=== PATIENT | female | born 1940 | race Caucasian/White ===

== ENCOUNTER 2021-10-05 17:05 | Outpatient (CLI) | payer MEDICARE, OTHER ==
[2021-10-05 18:56] LABS: Mean Corpuscular HGB CONC 32.9 g/dL (32.0-36.0); Mean Corpuscular Hemoglobin 29.8 pg (27.0-33.0); Mean Corpuscular Volume 90.6 fl (81.6-98.3); Platelet Count 183 10x3/uL (150-450); RBC Distribution Width 12.9 % (11.5-14.5); Red Blood Cell (RBC) Count 4.03 10x6/uL (3.90-5.03); White Blood Cell (WBC) Count 5.6 10x3/uL (3.5-10.5)
[2021-10-05 19:21] LABS: Anion Gap 11 mmol/L (10-20); BUN (Urea Nitrogen) 26 mg/dL (9.8-20.1); Calc. Creatinine Clearance 0 mL/min (70-130); Calcium 9.1 mg/dL (7.8-10.44); Carbon Dioxide 27 mmol/L (23-31); Chloride 100 mmol/L (98-107); Glucose 88 mg/dL (83-110); PTT 26.3 sec (22.0-33.0); Potassium 4.3 mmol/L (3.5-5.1); Prothrombin Time 10.6 sec (9.5-12.1); Sodium 134 mmol/L (136-145)
[2021-10-06 19:45] LABS: SARS-CoV-2 PCR by NAA Not Detected (NotDetected)
== END 2021-10-05 17:06 | disposition home or self-care (01) ==
LOC: LABBT 17:05
PROVIDERS: ATTEND Surgery
DX: Z01.818 Encounter for other preprocedural examination (principal); M50.120 Mid-cervical disc disorder, unspecified level; M48.02 Spinal stenosis, cervical region; Z20.822 Contact with and (suspected) exposure to COVID-19
CPT/HCPCS: 80048; 85027; 85610; 85730; 86850; 86900; 86901; 93005; U0003; U0005; 93010

== ENCOUNTER 2021-10-08 05:21 | Observation (INO) | payer MEDICARE, OTHER ==
[2021-10-06 14:24] VITALS: BMI 32.4
[2021-10-08] MEDS ORDERED: ceFAZolin 2 GM/DEX 5% 100 ML BAG ONE (06:15)
[2021-10-08] MEDS ORDERED: HYDROmorphone 2 MG/ML VIAL ONE (06:18)
[2021-10-08] MEDS ORDERED: Fentanyl 100 MCG/2 ML VIAL ONE (06:18)
[2021-10-08] MEDS ORDERED: Sodium Chloride 0.9% 10 ML ONE (06:19)
[2021-10-08] MEDS ORDERED: Thrombin 5000 UNITS/5 ML VIAL ONE (06:50)
[2021-10-08] MEDS ORDERED: Ketamine 50 MG/ML (10ML VIAL) ONE (07:10)
[2021-10-08] MEDS ORDERED: Ondansetron PF 4 MG/2 ML Vial ONE (07:32)
[2021-10-08] MEDS ORDERED: PROPOFOL 200 MG/20 ML VIAL ONE (07:32)
[2021-10-08] MEDS ORDERED: Phenylephrine 10 MG/ML VIAL ONE (07:32)
[2021-10-08] MEDS ORDERED: ePHEDrine 50 MG/ML VIAL ONE (07:32)
[2021-10-08] MEDS ORDERED: Lidocaine 1% PF 5 ML VIAL ONE (07:32)
[2021-10-08] MEDS ORDERED: Dexamethasone 20 MG/5 ML VIAL ONE (07:32)
[2021-10-08] MEDS ORDERED: Metoclopramide HCl 10 MG/2 ML VIAL ONE (07:32)
[2021-10-08] MEDS ORDERED: Glycopyrrolate 0.2 MG/ML 5 ML SYRINGE ONE (07:32)
[2021-10-08] MEDS ORDERED: Rocuronium Bromide 10 MG/ML (10ML VIAL) ONE (07:32)
[2021-10-08] MEDS ORDERED: Morphine 2 MG/ML VIAL SLOW IVP PRN (07:40)
[2021-10-08] MEDS ORDERED: HYDROcodone/Acetaminophen 7.5/325 mg Tablet PO PRN (07:40)
[2021-10-08] MEDS ORDERED: traMADol HCl 50 MG TAB PO PRN ×2 (07:40)
[2021-10-08] MEDS ORDERED: Acetaminophen 325 MG TAB PO PRN (07:40)
[2021-10-08] MEDS ORDERED: tiZANidine HCl 4 MG TAB PO PRN (07:43)
[2021-10-08] MEDS ORDERED: Morphine 4 MG/ML VIAL SLOW IVP PRN (08:02)
[2021-10-08] MEDS ORDERED: Non-Formulary Item 1 EACH (Omeprazole [Omeprazole] 40 MG Capsule.Dr) PO SCH (09:00)
[2021-10-08] MEDS ORDERED: Atorvastatin Calcium 20 MG TAB PO SCH (09:00)
[2021-10-08] MEDS ORDERED: Flecainide 50 MG TAB PO SCH (09:00)
[2021-10-08] MEDS ORDERED: Non-Formulary Item 1 EACH (Levothyroxine Sodium [Levothyroxine] 50 MCG Capsule) PO SCH (09:00)
[2021-10-08] MEDS ORDERED: Non-Formulary Item 1 EACH (Gabapentin [Gabapentin] 600 MG Tablet) PO SCH (09:00)
[2021-10-08] MEDS ORDERED: Amlodipine 5 MG TAB PO SCH (09:00)
[2021-10-08] MEDS ORDERED: Meperidine HCl/PF 25 MG/ML VIAL SLOW IVP PRN (09:04)
[2021-10-08] MEDS ORDERED: HYDROmorphone 2 MG/ML VIAL SLOW IVP PRN (09:04)
[2021-10-08] MEDS ORDERED: Ondansetron HCl/PF 4 MG/2 ML Vial IVP PRN (09:04)
[2021-10-08] MEDS ORDERED: Promethazine HCl 25 MG/ML VIAL IVPB PRN (09:04)
[2021-10-08] MEDS ORDERED: Promethazine HCl 25 MG/ML VIAL IM PRN (09:04)
[2021-10-08] MEDS ORDERED: SUGAMMADEX SODIUM 200 MG/2 ML VIAL ONE (09:17)
[2021-10-08] MEDS: Amlodipine 5 MG TAB PO SCH (13:43)
[2021-10-08] MEDS: Flecainide 50 MG TAB PO SCH ×2 (13:47→20:20)
[2021-10-08] MEDS: Gabapentin 300 MG CAP PO SCH ×3 (13:47→20:20)
[2021-10-08] MEDS: Sodium Chloride 0.9% 1,000 ML IV SCH ×2 (13:49→20:44)
[2021-10-08] MEDS ORDERED: CEFAZOLIN 2 GM in Premix Bag 1 BAG IVPB SCH (14:00)
[2021-10-08] MEDS: ceFAZolin Sodium/D5W 2 GM in Premix Bag 1 BAG IVPB SCH ×2 (16:49→23:45)
[2021-10-08] MEDS: Atorvastatin Calcium 20 MG TAB PO SCH (16:50)
[2021-10-09] MEDS ORDERED: Levothyroxine Sodium 50 MCG TAB PO SCH (06:00)
[2021-10-09] MEDS: ceFAZolin Sodium/D5W 2 GM in Premix Bag 1 BAG IVPB SCH (08:56)
[2021-10-09] MEDS: Gabapentin 300 MG CAP PO SCH (08:56)
[2021-10-09] MEDS: Atorvastatin Calcium 20 MG TAB PO SCH (08:57)
[2021-10-09] MEDS: Amlodipine 5 MG TAB PO SCH (08:57)
[2021-10-09] MEDS: Flecainide 50 MG TAB PO SCH (08:57)
[2021-10-09 11:14] VITALS: BP 152/83; TEMP 98.4
== END 2021-10-09 10:57 | disposition home or self-care (01) ==
LOC: SDC 05:21 → SURG A 07:40
PROVIDERS: ADMIT Surgery; ATTEND Surgery
PROC: 0RG10J1 Fusion of Cervical Vertebral Joint with Synthetic Substitute, Posterior Approach, Posterior Column, Open Approach (ICD-10-PCS; principal; 2021-10-08)
DX: M50.121 Cervical disc disorder at C4-C5 level with radiculopathy (principal); M85.88 Other specified disorders of bone density and structure, other site; M48.02 Spinal stenosis, cervical region; K11.8 Other diseases of salivary glands; I10 Essential (primary) hypertension; E78.5 Hyperlipidemia, unspecified; I48.91 Unspecified atrial fibrillation; G43.909 Migraine, unspecified, not intractable, without status migrainosus; E03.9 Hypothyroidism, unspecified; Z79.1 Long term (current) use of non-steroidal anti-inflammatories (NSAID); Z79.82 Long term (current) use of aspirin; Z79.899 Other long term (current) drug therapy; Z88.5 Allergy status to narcotic agent; Z88.8 Allergy status to other drugs, medicaments and biological substances
CPT/HCPCS: 20930; 20936; 22551; 22552 ×2; 22853 ×3; 76000; 86850; 86900; 86901; C1713 ×3; C1768; C1776; 96374; 96376; G0378; J1100; J1170; J2370; J2405; J2704; J2765; J3010; J3490; J7050

== ENCOUNTER 2022-08-13 05:54 | Observation (INO) | payer MEDICARE, MEDICAID ==
[2022-08-13] MEDS ORDERED: Iopamidol 0 ML ONE (06:44)
[2022-08-13] MEDS ORDERED: Lidocaine 2% PF 5 ML VIAL ONE (06:44)
[2022-08-13] MEDS ORDERED: Bupivacaine HCl 0.5%/Epinephrine 1:200,000/PF 30 ml Vial ONE (06:44)
[2022-08-13] MEDS ORDERED: Iopamidol 15 ML ONE (06:45)
[2022-08-13] MEDS ORDERED: Famotidine/PF 20 mg/2ml Vial ONE (06:48)
[2022-08-13] MEDS ORDERED: fentaNYL PF 100 MCG/2 ML SYRINGE ONE (06:48)
[2022-08-13] MEDS ORDERED: PROPOFOL 60 ML ONE (06:48)
[2022-08-13 07:17] LABS: Prothrombin Time 13.1 sec (12.0-14.7)
[2022-08-13 07:18] LABS: PTT 31.8 sec (22.9-36.1)
[2022-08-13] MEDS ORDERED: Sodium Chloride 0.9% 100 ML ONE (07:18)
[2022-08-13] MEDS ORDERED: CEFAZOLIN 1 GM VIAL ONE (07:18)
[2022-08-13] MEDS ORDERED: methylPREDNISolone Acetate 40 mg/ml Vial ONE (07:30)
[2022-08-13] MEDS ORDERED: Metoclopramide HCl 10 MG/2 ML VIAL ONE (07:34)
[2022-08-13] MEDS ORDERED: PROPOFOL 200 MG/20 ML VIAL ONE (07:34)
[2022-08-13] MEDS ORDERED: NEOSTIGMINE 3 MG/3 ML SYR 3 MG/3 ML SYRINGE ONE (07:34)
[2022-08-13] MEDS ORDERED: Rocuronium Bromide 10 MG/ML (10ML VIAL) ONE (07:34)
[2022-08-13] MEDS ORDERED: ePHEDrine 50 MG/ML VIAL ONE (07:34)
[2022-08-13] MEDS ORDERED: Dexamethasone 20 MG/5 ML VIAL ONE (07:34)
[2022-08-13] MEDS ORDERED: Bupivacaine 0.25% HCL 30 ML VIAL ONE (07:34)
[2022-08-13] MEDS ORDERED: Glycopyrrolate 0.2 MG/ML 5 ML SYRINGE ONE (07:34)
[2022-08-13] MEDS ORDERED: Ondansetron PF 4 MG/2 ML Vial ONE (07:34)
[2022-08-13] MEDS ORDERED: PHENYLEPHRINE-NS 100 MCG/ML 10 ML SYRINGE ONE (07:34)
[2022-08-13 08:02] LABS: SARS-CoV-2 NAA Rapid Test Not Detected (NotDetected)
[2022-08-13] MEDS ORDERED: Promethazine HCl 25 MG/ML VIAL IVPB PRN (08:41)
[2022-08-13] MEDS ORDERED: Promethazine HCl 25 MG/ML VIAL IM PRN (08:41)
[2022-08-13] MEDS ORDERED: Ondansetron HCl/PF 4 MG/2 ML Vial IVP PRN (08:41)
[2022-08-13] MEDS ORDERED: Ketorolac Tromethamine 30 MG/ML VIAL IVP PRN (08:41)
[2022-08-13] MEDS ORDERED: HYDROcodone/Acetaminophen 5/325 mg Tablet PO PRN (09:14)
[2022-08-13] MEDS ORDERED: Loperamide HCl 2 MG CAP PO PRN ×2 (09:14)
[2022-08-13] MEDS ORDERED: Ondansetron PF 4 MG/2 ML Vial IVP PRN (09:14)
[2022-08-13 10:49] VITALS: BMI 29.8
[2022-08-13] MEDS ORDERED: FLU VACC QS2022-23(65YR UP)/PF 240 MCG/0.7 ML SYRINGE IM ONE (11:30)
[2022-08-13] MEDS ORDERED: Atorvastatin Calcium 20 MG TAB PO SCH (21:00)
[2022-08-13] MEDS: Flecainide 50 MG TAB PO SCH (21:13)
[2022-08-13] MEDS: DULoxetine 30 MG CAP PO SCH (21:14)
[2022-08-13] MEDS: Methocarbamol 500 MG TAB PO SCH (21:14)
[2022-08-13] MEDS: traMADol HCl 50 MG TAB PO SCH (21:15)
[2022-08-14] MEDS ORDERED: Levothyroxine Sodium 50 MCG TAB PO SCH (06:00)
[2022-08-14] MEDS: DULoxetine 30 MG CAP PO SCH (08:41)
[2022-08-14] MEDS: traMADol HCl 50 MG TAB PO SCH (08:41)
[2022-08-14] MEDS: Enoxaparin Sodium 40 MG/0.4 ML SYRINGE SC SCH ×2 (08:41→10:20)
[2022-08-14] MEDS: Flecainide 50 MG TAB PO SCH (08:41)
[2022-08-14] MEDS ORDERED: Amlodipine 5 MG TAB PO SCH (09:00)
[2022-08-14] MEDS ORDERED: Aspirin 81 mg Enteric Coated Tablet PO SCH (09:00)
[2022-08-14] MEDS ORDERED: Enoxaparin Sodium 40 MG/0.4 ML SYRINGE SC SCH (09:00)
[2022-08-14] MEDS: Methocarbamol 500 MG TAB PO SCH (10:21)
[2022-08-14 12:27] VITALS: BP 146/78; TEMP 98.8
== END 2022-08-14 16:50 | disposition home or self-care (01) ==
LOC: SDC 05:54 → MSONC 10:20
PROVIDERS: ADMIT Specialist; ATTEND Specialist
PROC: XNU0356 Supplement Lumbar Vertebra with Mechanically Expandable (Paired) Synthetic Substitute, Percutaneous Approach, New Technology Group 6 (ICD-10-PCS; principal; 2022-08-13)
PROC: 3E0R33Z Introduction of Anti-inflammatory into Spinal Canal, Percutaneous Approach (ICD-10-PCS; 2022-08-13)
DX: M80.08XA Age-related osteoporosis with current pathological fracture, vertebra(e), initial encounter for fracture (principal); S32.010A Wedge compression fracture of first lumbar vertebra, initial encounter for closed fracture; M51.16 Intervertebral disc disorders with radiculopathy, lumbar region; M54.81 Occipital neuralgia; M47.812 Spondylosis without myelopathy or radiculopathy, cervical region; M48.062 Spinal stenosis, lumbar region with neurogenic claudication; I70.0 Atherosclerosis of aorta; I48.0 Paroxysmal atrial fibrillation; I10 Essential (primary) hypertension; E78.5 Hyperlipidemia, unspecified; E03.9 Hypothyroidism, unspecified; K21.9 Gastro-esophageal reflux disease without esophagitis; M17.0 Bilateral primary osteoarthritis of knee; Z79.82 Long term (current) use of aspirin; Z79.890 Hormone replacement therapy; Z79.899 Other long term (current) drug therapy; Z88.5 Allergy status to narcotic agent; Z88.8 Allergy status to other drugs, medicaments and biological substances; Z20.822 Contact with and (suspected) exposure to COVID-19; X50.1XXA Overexertion from prolonged static or awkward postures, initial encounter
CPT/HCPCS: 22514; 64483; 72100; 85610; 85730; 93005; U0002; 36415; 93010; J0690; J1030; J1100; J1650; J2001; J2405; J2704; J2765; J3490; Q9967; S0020; S0028